=== PATIENT | female | born 1930 | race Caucasian/White ===

== ENCOUNTER 2016-07-15 03:11 | Inpatient (IN) | payer MEDICARE, BC ==
[~2016-07-15] VITALS: Ht 162.6 cm; Wt 79.5 kg
--- NOTE | 2016-07-16 07:38 | CO ---
ADMIT: 07/15/2016 RM/LOC: 632 [facility] MR#: [id number] 2620 [facility] [address] [place] [id number] JORGE A HIGGINS [address] [place] [address] Consultation SEX: F AGE: 85 : 1930 DATE OF CONSULTATION: 07/15/2016 ATTENDING PHYSICIAN: Yvette Blake CONSULTING PHYSICIAN: Emily Friedman MD CHIEF COMPLAINT: Right proximal humerus fracture. HISTORY: This patient is an 85-year-old, admitted through the emergency room. She is a poor historian, but recalls getting up from her chair while watching TV last night, losing her balance, and falling on her right side. She was brought to [place] where radiographs showed a minimally displaced oblique fracture of the proximal third of the right humerus. PAST MEDICAL HISTORY: Medical problems include congestive heart failure, pacemaker placement, dementia, chronic anticoagulation therapy, hypothyroidism, and type 2 diabetes. FAMILY HISTORY: Noncontributory. SOCIAL HISTORY: The patient says she lives with her daughter. PHYSICAL EXAMINATION: This patient has a well-padded coaptation splint on the right humerus. She is also in a sling. She has good neurocirculatory function to the right hand. Her radiographs were discussed above. IMPRESSION: Minimally displaced proximal third right humerus fracture. RECOMMENDATIONS: 1. Continue with coaptation splint. 2. Follow up in 10 to 14 days for repeat x-rays. If this displaces further or shows no sign of healing at some point, she may need operative intervention. Emily Friedman MD/ bibl JOB #: [id number] CC: Yvette Blake, Attending Physician Yvette Blake, Family Physician
[2016-07-16] MEDS ORDERED: THERA1 EACH PO (16:07)
[2016-07-16] MEDS ORDERED: LASIX DPS40 MG PO (16:07)
[2016-07-16] MEDS ORDERED: SYNTHROID DP0.125 MG PO (16:07)
[2016-07-16] MEDS ORDERED: COUMADIN2.5 MG PO (16:08)
[2016-07-16] MEDS ORDERED: COUMADIN5 MG PO (16:08)
[2016-07-16] MEDS ORDERED: MICRO-K DPS10 MEQ PO (16:09)
[2016-07-16] MEDS ORDERED: LOPRESSOR DPS50 MG PO (16:09)
[2016-07-16] MEDS ORDERED: CALTRATE-600 D600 MG PO (16:09)
--- NOTE | 2016-07-18 19:20 | ER ---
ADMIT: 07/15/2016 RM/LOC: 632 [facility] MR#: [id number] 2620 [facility] [address] [place] [id number] JORGE A HIGGINS [address] [place] [address] Emergency Room Report SEX: F AGE: 85 : 1930 DATE: 07/15/2016 HISTORY OF PRESENT ILLNESS: The patient is an 85-year-old female with past medical history of hypertension and pacemaker, came to the ER with chief complaint of right arm pain. Allegedly, the patient was watching TV at 1:00 a.m. while she tried to stand up from the chair, she tripped and fell on the right side and hit the right arm to the ground and denies any head trauma or loss of consciousness and complains of right arm pain. The patient denies any numbness or tingling. PHYSICAL EXAMINATION: HEAD and NECK: There are no signs of trauma in head and neck. SPINE: No spinal midline tenderness or step-offs. CHEST: Clear bilaterally. HEART: Normal heart sounds. ABDOMEN: Soft. MUSCULOSKELETAL: There is tenderness in the right arm without any open wound. There is no ecchymosis. Normal peripheral pulses. Sensory is grossly normal. The patient is splinting the right arm to the chest with the other arm. IMAGING: X-ray of the right humerus showed closed displaced oblique fracture of the right humerus shaft. Orthopedic Surgery and also Family Medicine were consulted. The patient was admitted for further followups and treatments. Noel Valdez MD/ jean marie JOB #: [id number] CC: Yvette Blake MD, Attending Physician Yvette Blake MD, Family Physician
--- NOTE | 2016-07-28 08:46 | HP ---
ADMIT: 07/15/2016 RM/LOC: 632 [facility] MR#: [id number] [facility] [id number] [address] [facility] [address] [place] [id number] ANITA HIGGINS [address] [place] [address] History and Physical SEX: F AGE: 85 : 1930 DATE OF SERVICE: 07/15/2016 CHIEF COMPLAINT: Right arm pain. 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 She was found to have a minimally displaced fracture of her right proximal humeral shaft and initially it was thought that she would need to have surgical fixation of this fracture. However Dr. Friedman with Orthopedics has reviewed her films and does not think that surgical intervention is indicated at this time. Anita herself does not remember having a fall due to her underlying dementia. PAST MEDICAL HISTORY: Remarkable for: 1. Hypothyroidism. 2. Vitamin B12 deficiency. 3. Diabetes mellitus type 2 with peripheral neuropathy. 4. Peripheral vascular disease. 5. Diverticulosis. 6. Coronary artery disease. 7. Depression. 8. Pulmonary hypertension. 9. Atrial fibrillation status post pacemaker. 10.Dementia. 11.Obstructive sleep apnea. 12.Mitral regurg. 13.Primary osteoarthritis both knees. 14.Status post pacemaker placement. PAST SURGICAL HISTORY: She has had hysterectomy and pacer placement, cardiac catheterization with stent placement in August of 2004. MEDICATIONS: Outpatient medications include: 1. Synthroid. 2. Coumadin. 3. Tylenol. 4. Fish oil. 5. Metoprolol ER 50 mg daily. 6. Multivitamin daily. 7. Lasix 40 to 60 mg daily. ALLERGIES: SHE IS ALLERGIC TO ADCIRCA. SOCIAL HISTORY: She is a nonsmoker. She is . She lives with her daughter. Her daughter is not with her at the time of my interview today. Much of her history is obtained from her outpatient chart, which is much more detailed. FAMILY HISTORY: Noncontributory. ADMIT: 07/15/2016 RM/LOC: 632 [facility] MR#: [id number] [address] [id number] ANITA HIGGINS [address] [place] [address] History and Physical SEX: F AGE: 85 : 1930 REVIEW OF SYSTEMS: As per HPI. All others reviewed and negative. PHYSICAL EXAMINATION: VITAL SIGNS: Blood pressure is 110/81, pulse 74, respirations 16, temp 98.5, and O2 saturation is 97% on room air. GENERAL: Awake, alert, no acute distress. She is confused, unsure of where she is and unable to recall why her right arm hurts. HEENT: Normocephalic and atraumatic. NECK: Supple. No lymphadenopathy. No thyromegaly. HEART: Regular rate and rhythm. No murmurs, gallops, or rubs. LUNGS: Clear to auscultation bilaterally. ABDOMEN: Obese, soft, nontender, and nondistended. No rebound, guarding, or masses. EXTREMITIES: No cyanosis, clubbing, or edema. LABORATORY AND X-RAY DATA: CBC shows a white count of 11, hemoglobin of 12.6, hematocrit 38.6, and platelet count 173. INR was 2.3. CMP, remarkable for creatinine of 1.2, random glucose of 222, and hemoglobin A1c of 7.3. X-ray of her right arm shows a mildly displaced oblique right proximal humerus fracture. ASSESSMENT: Right proximal humeral shaft fracture, minimal displacement with plan for conservative management. PLAN: We will have PT/OT evaluate her for her appropriateness on going back home to live with her daughter. If they do not feel that this is appropriate, we will need to start working on placement with social work consult. We will try not to change any of her outpatient medications. She is otherwise stable. Ralph Abdul MD/ jean marie JOB #: [id number] CC: Yvette Blake, Attending Physician Yvette Blake, Family Physician
--- NOTE | 2016-08-18 09:39 | DS ---
ADMIT: 07/15/2016 RM/LOC: 632 [facility] MR#: [id number] 2620 [facility] [address] [place], [place] [address] JORGE A HIGGINS [address] [place] [address] General Discharge Summary SEX: F AGE: 85 : 1930 ADMISSION DATE: 07/15/2016 DISCHARGE DATE: 07/15/2016 Briefly, the patient was admitted through the ER on 07/15/2016 with a minimally displaced right humeral shaft fracture on the right side. Orthopedics was consulted. She was admitted to the hospital initially as it was thought she might need operative management. Dr. Friedman with Orthopedics consulted, reviewed the films and did not feel that she needed surgical management of this fracture and felt this could be managed conservatively as an outpatient. She was discharged home the same day with further management plan as an outpatient. Ralph Abdul MD/ jean marie JOB #: [id number] CC: Ralph Abdul MD, Attending Physician Yvette Blake MD, Family Physician
== END 2016-07-15 19:30 | disposition home health service (06) | DRG 563 ==
LOC: ER 03:11 → 5MS 04:40 → 6PED 04:40 → ER 04:40 → 6PED 04:40 → 5MS 06:19 → 6PED 06:19
PROVIDERS: ADMIT Family Medicine
DX: S42.331A Displaced oblique fracture of shaft of humerus, right arm, initial encounter for closed fracture (principal); E11.42 Type 2 diabetes mellitus with diabetic polyneuropathy; I50.9 Heart failure, unspecified; I11.0 Hypertensive heart disease with heart failure; F03.90 Unspecified dementia, unspecified severity, without behavioral disturbance, psychotic disturbance, mood disturbance, and anxiety; W18.30XA Fall on same level, unspecified, initial encounter; E03.9 Hypothyroidism, unspecified; E53.8 Deficiency of other specified B group vitamins; E11.51 Type 2 diabetes mellitus with diabetic peripheral angiopathy without gangrene; K57.90 Diverticulosis of intestine, part unspecified, without perforation or abscess without bleeding; I25.10 Atherosclerotic heart disease of native coronary artery without angina pectoris; F32.9 Major depressive disorder, single episode, unspecified; I27.2 Other secondary pulmonary hypertension; I48.91 Unspecified atrial fibrillation; G47.33 Obstructive sleep apnea (adult) (pediatric); I34.0 Nonrheumatic mitral (valve) insufficiency; M17.0 Bilateral primary osteoarthritis of knee; Z95.0 Presence of cardiac pacemaker; Z95.5 Presence of coronary angioplasty implant and graft; Z79.01 Long term (current) use of anticoagulants

== ENCOUNTER 2016-07-23 03:46 | Emergency (ER) | payer MEDICARE, BC ==
[~2016-07-23 03:46] MED LIST: CALTRATE-600 D600 MG PO; COUMADIN2.5 MG PO; COUMADIN5 MG PO; LASIX DPS40 MG PO; LOPRESSOR DPS50 MG PO; MICRO-K DPS10 MEQ PO; SYNTHROID DP0.125 MG PO; THERA1 EACH PO
--- NOTE | 2016-07-23 22:54 | ER ---
ADMIT: 07/23/2016 RM/LOC: ER [facility] MR#: [id number] [address] [id number] JORGE A HIGGINS [address] [place] [address] Emergency Room Report SEX: F AGE: 85 : 1930 DATE: 07/23/2016 The patient is an 85-year-old female, fracture of right humerus on July 15, treated with coaptation splint, brought in tonight by ambulance because of increased pain. Daughter had only been using tramadol 1 or 2 times a day with up to 4 g Tylenol. Exam remarkable for nontoxic, afebrile female with obvious dependant lividity. The patient is anticoagulated for atrial fibrillation. Coaptation splint was loose. Good radial pulse and capillary refill. X-ray right humerus elbow forearm remarkable only for spiral midshaft humeral fracture. Educated the patient and daughter concerning dependent lividity and need for more tramadol. The patient received Toradol, Dilaudid, and Reglan in department with 50% improvement of pain. Ambulated well. Discharged in daughter's care. Magdiel Collins MD/ jean marie JOB #: [id number] CC: Magdiel Collins MD, Attending Physician MD Emily Miller MD
== END 2016-07-23 05:28 | disposition home or self-care (01) ==
LOC: ER 03:46
DX: S42.201A Unspecified fracture of upper end of right humerus, initial encounter for closed fracture (principal); S40.021A Contusion of right upper arm, initial encounter; E11.9 Type 2 diabetes mellitus without complications; E03.9 Hypothyroidism, unspecified; I10 Essential (primary) hypertension; Z79.01 Long term (current) use of anticoagulants; Z79.899 Other long term (current) drug therapy; W19.XXXA Unspecified fall, initial encounter; Y92.009 Unspecified place in unspecified non-institutional (private) residence as the place of occurrence of the external cause